=== PATIENT | female | born 1990 | race Hispanic/Latino ===

== ENCOUNTER 2020-06-02 14:57 | Emergency (ER) | payer SELFPAY ==
[2020-06-02] MEDS ORDERED: SODIUM CHLORIDE 0.9% 1000 ML 1,000 ML IV ONE (15:05)
[2020-06-02] MEDS ORDERED: diphenhydrAMINE 50 MG/ML VIAL IV ONE (15:05)
--- NOTE | 2020-06-02 15:07 | Emergency Department Report ---
ED General Adult HPI - General Chief complaint: Allergic Reaction Stated complaint: ALLERGIC REACTION Time Seen by Provider: 06/02/20 15:01 Source: patient Mode of arrival: Ambulatory Limitations: No Limitations - History of Present Illness Initial comments: Patient is a 30-year-old, 21-week female who presents emergency department for evaluation of suspected allergic reaction. Patient notes hives to her face and hands associated with throat discomfort x20 minutes after eating mixed fruit. 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 Denies shortness of breath. Patient denies history of anaphylaxis - Related Data Previous Rx's Medication Instructions Recorded Last Taken Type Diphenhydramine HCl [Complete 25 mg PO Q6H #10 tablet 06/02/20 Unknown Rx Allergy TAB] EPINEPHrine (NF) [Epipen (Nf)] 0.3 mg IM ONCE 1 Days syringekit 06/02/20 Unknown Rx predniSONE [Deltasone] 20 mg PO QDAY #10 tab 06/02/20 Unknown Rx Allergies Allergy/AdvReac Type Severity Reaction Status Date / Time pineapple Allergy Anaphylaxis Verified 06/02/20 14:59 ED Review of Systems ROS: Stated complaint: ALLERGIC REACTION Other details as noted in HPI Comment: All other systems reviewed and negative ED Past Medical Hx - Past Medical History Previous Medical History?: No - Surgical History Past Surgical History?: No - Medications Home Medications: Home Medications Medication Instructions Recorded Confirmed Last Taken Type Diphenhydramine HCl [Complete 25 mg PO Q6H #10 tablet 06/02/20 Unknown Rx Allergy TAB] EPINEPHrine (NF) [Epipen (Nf)] 0.3 mg IM ONCE 1 Days syringekit 06/02/20 Un known Rx predniSONE [Deltasone] 20 mg PO QDAY #10 tab 06/02/20 Unknown Rx ED Physical Exam - General Limitations: No Limitations General appearance: alert, in no apparent distress - Head Head exam: Present: atraumatic, normocephalic - Eye Eye exam: Present: normal appearance - ENT ENT exam: Present: mucous membranes moist - Neck Neck exam: Present: normal inspection - Respiratory Respiratory exam: Present: normal lung sounds bilaterally. Absent: respiratory distress - Cardiovascular Cardiovascular Exam: Present: regular rate, normal rhythm. Absent: systolic murmur, diastolic murmur, rubs, gallop - GI/Abdominal GI/Abdominal exam: Present: soft, normal bowel sounds - Extremities Exam Extremities exam: Present: normal inspection - Back Exam Back exam: Present: normal inspection - Neurological Exam Neurological exam: Present: alert, oriented X3 - Psychiatric Psychiatric exam: Present: normal affect, normal mood - Skin Skin exam: Present: warm, dry, intact, normal color. Absent: rash - Expanded Skin Exam Expanded Type of lesion: Present: rash (Blanching hives diffusely across face and bilateral dorsal hands) ED Course Vital Signs 06/02/20 06/02/20 06/02/20 14:59 15:15 16:05 Temperature 97.4 F L Pulse Rate 84 95 H 79 Respiratory 20 13 14 Rate Blood Pressure 125/48 118/79 104/64 [Right] O2 Sat by Pulse 92 93 100 Oximetry 06/02/20 17:12 Temperature Pulse Rate 93 H Respiratory 21 Rate Blood Pressure 98/59 [Right] O2 Sat by Pulse 100 Oximetry - Reevaluation(s) Reevaluation #1: 06/02/20 15:07 Patient initially treated with IV diphenhydramine. Reevaluation #2: 06/02/20 17:26 Patient reevaluated now in no acute distress. Rash has resolved. Patient denies shortness of breath or throat tightness. Lungs clear to auscultation bilaterally. Patient written prescription for Benadryl as needed, is written prescription for prednisone and advised to take only if Benadryl fails to resolve her symptoms, additionally is written a prescription for EpiPen in the event she has any dyspneic symptoms while outside of the hospital. ED Medical Decision Making - Lab Data Vital Signs 06/02/20 06/02/20 06/02/20 14:59 15:15 16:05 Temperature 97.4 F L Pulse Rate 84 95 H 79 Respiratory 20 13 14 Rate Blood Pressure 125/48 118/79 104/64 [Right] O2 Sat by Pulse 92 93 100 Oximetry 06/02/20 17:12 Temperature Pulse Rate 93 H Respiratory 21 Rate Blood Pressure 98/59 [Right] O2 Sat by Pulse 100 Oximetry Critical care attestation.: If time is entered above; I have spent that time in minutes in the direct care of this critically ill patient, excluding procedure time. ED Disposition Clinical Impression: Allergic reaction Disposition: DC-01 TO HOME OR SELFCARE Is pt being admited?: No Condition: Stable Instructions: Hives Prescriptions: Diphenhydramine HCl [Complete Allergy TAB] 25 mg PO Q6H #10 tablet predniSONE [Deltasone] 20 mg PO QDAY #10 tab EPINEPHrine (NF) [Epipen (Nf)] 0.3 mg IM ONCE 1 Days syringekit Referrals: VANESSA TORRES [Other] - 3-5 Days
[2020-06-02 17:13] VITALS: BP 98/59
== END 2020-06-02 18:50 | disposition home or self-care (01) ==
LOC: ED 14:57
DX: T78.40XA Allergy, unspecified, initial encounter (principal); Z79.899 Other long term (current) drug therapy; Z91.018 Allergy to other foods; Y92.89 Other specified places as the place of occurrence of the external cause
CPT/HCPCS: 96361; 96374; 99282; J1200; J7030